=== PATIENT | female | born 1995 | race Caucasian/White ===

== ENCOUNTER 2017-04-30 14:39 | Emergency (ER) | payer MEDICAID ==
[2015-10-11 13:54] VITALS: BMI 50.6
[~2017-04-30 14:39] MED LIST: DEMEROL50 MG PO; PRENATAL COMPLE1 TAB PO
== END 2017-04-30 17:12 | disposition home or self-care (01) ==
LOC: D.ER 14:39
DX: T83.89XA Other specified complication of genitourinary prosthetic devices, implants and grafts, initial encounter (principal); F17.200 Nicotine dependence, unspecified, uncomplicated